=== PATIENT | male | born 1980 | race Caucasian/White ===

== ENCOUNTER 2018-01-04 09:59 | Emergency (ER) | payer SELFPAY ==
--- OUTSIDE RECORDS SUMMARY | 2018-01-04 10:02 | XMS REPORT ---
:1980 [facility] [address] [place] [id number] Care Team Providers Name Role Phone UNKNOWN, REFFERING Primary Care Provider Unavailable POLY CARRASCO Unavailable Unavailable Problems This patient has no known problems. Allergies, Adverse Reactions, Alerts This patient has no known allergies or adverse reactions. Medications This patient has no known medications. Results Test Description Test Time Test Comments Text Results Atomic Results Result Comments Valproic Acid (Depakote),S 2017-01-08 05:51:00 Test Item Value Reference Range Comments Valproic Acid (test code=VALP) 90.6 ug/mL 50.0-100.0 Culture, [id number] 08:03:00Specimen: SputumCollected: 01/04/2017 15: 50 Status: Final Last Updated: 01/07/2017 08:03 Gram Stain (Final) (Final ) 01/05/17 Rare Epithelial Cells 01/06/17 Grams morphology consistentwith normal alberto with: No WBC'sSeen Culture Result (Final) (Final) 01/06/17 Normal alberto at 24hours 01/07/17 Normal alberto at 48 hoursPartial Thromboplastin [id number] 16:55:00 Test Item Value Reference Range Comments aPTT (test code=PTT) 32.60 seconds 24.39-37.25 Prothrombin [id number] 16:46:00 Test Item Value Reference Range Comments PT (test code=PT) 10.70 seconds 9.78-13.35 INR (test code=INR) 0.94 Ratio 0.6-1.2 Comprehensive Metabolic [id number] 16:45:00 Test Item Value Reference Range Comments Sodium (test code=NA) 138 mmol/L 135-145 Potassium (test code=K) 4.2 mmol/L 3.5-5.1 Chloride (test code=CL) 98 mmol/L 98-105 Carbon Dioxide (test 27 mmol/L 22-29 code=CO2) Glucose (test code=GLU) 131 mg/dL 70-115 Blood Urea Nitrogen 19 mg/dL 6-20 (test code=BUN) Creatinine (test 0.7 mg/dL 0.7-1.2 code=CREAT) Calcium (test code=CA) 10.5 mg/dL 8.3-10.5 Prot Total (test 7.0 g/dL 6.4-8.3 code=TP) Albumin (test code=ALB) 4.6 g/dL 3.5-5.2 A/G Ratio (test 1.9 Ratio code=AGRATIO) Globulin (test 2.4 2.9-3.1 code=GLOB) Bili Total (test 0.2 mg/dL 0.1-0.9 code=TBIL) Alk Phos (test 86 U/L 40-129 code=APHOS) AST (test code=AST) 16 U/L 1-40 ALT (test code=ALT) 14 U/L 1-41 BUN/Creatinine Ratio 27.1 (test code=BCRATIO) Anion Gap (test 13 mmol/L 7-16 code=AGAP) Estimated GFR (test >60 mL/min/1.73m2 eGFR (estimated Glomerular code=GFR) Filtration Rate) is an estimated value,calculated from the patient's serum creatinine using the MDRD equation.It is NOT the patient's actual GFR. The eGFR provides a more clinicallyuseful measure of kidney disease than serum creatinine alone.This calculation takes sex and race into account, if the informationis provided. If the race is not provided, and the patient isAfrican-Vietnamese, multiply by 1.212. If sex is not provided, and thepatient is female, multiply by 0.742. Results for patients <18 years ofage have not been validated by the MDRD study and should be interpretedwith caution.eGFR Result Interpretation:eGFR > or=60 is in the Normal RangeeGFR < 60 may mean kidney diseaseeGFR < 15 may mean kidney failureRanges recommended by the National Kidney Foundation,http://nkdep.nih .gov CBC with [id number] 16:21:00 Test Item Value Reference Range Comments WBC (test code=WBC) 10.6 K/cumm 4.4-10.5 RBC (test code=RBC) 4.79 M/cumm 4.10-5.70 Hemoglobin (test code=HGB) 13.3 gm/dL 13.4-17.4 Hematocrit (test code=HCT) 40.6 % 38.7-52.0 MCV (test code=MCV) 84.7 fL 80-100 MCH (test code=MCH) 27.7 pg 27.0-32.5 MCHC (test code=MCHC) 32.8 g/dL 32.0-37.5 RDW (test code=RDW) 15.7 % 11.5-14.5 Platelet Count (test code=PLTCT) 327 K/cumm 140-440 MPV (test code=MPV) 7.1 fL Diff Method (test code=DIFFM) Auto Neutrophil (test code=NEUT) 55.8 % 36-70 Lymphocyte (test code=LYMPH) 31.5 % 12-44 Monocyte (test code=MONO) 10.6 % 0-11 Eosinophil (test code=EOS) 1.9 % 0-7 Basophil (test code=BASO) 0.3 % 0-2 Neutro Abs (test code=ANEUT) 5.9 K/cumm 1.6-7.4 Lymph Abs (test code=ALYMPH) 3.3 K/cumm 0.5-4.6 [place] Abs (test code=AMONO) 1.1 K/cumm 0.0-1.2 Eos Abs (test code=AEOS) 0.20 K/cumm 0.00-0.74 Baso Abs (test code=ABASO) 0.0 K/cumm 0.00-0.21 Valproic Acid (Depakote),[id number] 07:27:00 Test Item Value Reference Range Comments Valproic Acid (test code=VALP) 37.8 ug/mL 50.0-100.0 [id number] 14:36:00 Test Item Value Reference Range Comments Amphetamine (test code=AMPH) Negative Negative For diagnostic purposes only, positive results should always be assessedin conjunctionwith the patient's medical history,clinical examination and otherfindings.To fulfill legal requirements, a more specific alternate chemical methodmust be used inorder to obtain a Confirmed analytical result. GC/MS is the preferred confirmatory method. Barbiturates (test code=MADELINE) Negative Negative Benzodiazepine (test Negative Negative code=MARILEE) Cocaine (test code=COCA) Negative Negative Methadone (test code=MTHD) Negative Negative Opiates (test code=OPIA) Negative Negative PCP (test code=PCP) Negative Negative Propoxyphene (test Negative Negative code=PROPOX) THC (test code=THC) Negative Negative Urinalysis [id number] 13:45:00 Test Item Value Reference Range Comments Color (test code=COLOR) Yellow Yellow,Straw,Pl yellow Clarity (test code=CLAR) Clear Clear Specific [place] (test 1.029 1.001-1.035 code=SPGR) pH (test code=PH) 5.0 5.0-9.0 Ketone (test code=KET) Negative mg/dL Negative Glucose (test code=GLUCUR) 100 mg/dL Negative Protein (test code=PROT) Negative mg/dL Negative Bilirubin (test code=BILI) Negative mg/dL Negative Occult Blood (test Trace Negative code=UDOB) Urobilinogen (test 1.0 mg/dL 0.2-1.0 code=UROB) Nitrite (test code=NIT) Negative Negative Leuk Esterase (test Negative Negative code=LEUK) Micros Exam (test Indicated code=MEXAM) Epithelial Cells (test 0-2 /LPF 0-30 code=EPI) WBC, Urine (test code=UWBC) None seen /HPF 0-5 RBC, Urine (test code=URBC) 0-3 /HPF 0-5 Bacteria (test code=BACT) Few /HPF Crystals (test code=DAVID) Few Calcium Oxalate /HPF Comprehensive Metabolic [id number] 13:40:00 Test Item Value Reference Range Comments Sodium (test code=NA) 137 mmol/L 135-145 Potassium (test code=K) 3.7 mmol/L 3.5-5.1 Chloride (test code=CL) 99 mmol/L 98-105 Carbon Dioxide (test 28 mmol/L 22-29 code=CO2) Glucose (test code=GLU) 142 mg/dL 70-115 Blood Urea Nitrogen 18 mg/dL 6-20 (test code=BUN) Creatinine (test 0.8 mg/dL 0.7-1.2 code=CREAT) Calcium (test code=CA) 9.6 mg/dL 8.3-10.5 Prot Total (test 7.1 g/dL 6.4-8.3 code=TP) Albumin (test code=ALB) 4.7 g/dL 3.5-5.2 A/G Ratio (test 2.0 Ratio code=AGRATIO) Globulin (test 2.4 2.9-3.1 code=GLOB) Bili Total (test 0.5 mg/dL 0.1-0.9 code=TBIL) Alk Phos (test 118 U/L 40-129 code=APHOS) AST (test code=AST) 15 U/L 1-40 ALT (test code=ALT) 17 U/L 1-41 BUN/Creatinine Ratio 22.5 (test code=BCRATIO) Anion Gap (test 10 mmol/L 7-16 code=AGAP) Estimated GFR (test >60 mL/min/1.73m2 eGFR (estimated Glomerular code=GFR) Filtration Rate) is an estimated value,calculated from the patient's serum creatinine using the MDRD equation.It is NOT the patient's actual GFR. The eGFR provides a more clinicallyuseful measure of kidney disease than serum creatinine alone.This calculation takes sex and race into account, if the informationis provided. If the race is not provided, and the patient isAfrican-Vietnamese, multiply by 1.212. If sex is not provided, and thepatient is female, multiply by 0.742. Results for patients <18 years ofage have not been validated by the MDRD study and should be interpretedwith caution.eGFR Result Interpretation:eGFR > or=60 is in the Normal RangeeGFR < 60 may mean kidney diseaseeGFR < 15 may mean kidney failureRanges recommended by the National Kidney Foundation,http://nkdep.nih .gov Alcohol/Ethanol, [id number] 13:40:00 Test Item Value Reference Range Comments Alcohol, Ethyl (test <0.01 g/dL 0.00-0.01 Intoxicated 0.080 g/dL or code=ETOH) more CBC with [id number] 13:24:00 Test Item Value Reference Range Comments WBC (test code=WBC) 8.9 K/cumm 4.4-10.5 RBC (test code=RBC) 5.03 M/cumm 4.10-5.70 Hemoglobin (test code=HGB) 13.6 gm/dL 13.4-17.4 Hematocrit (test code=HCT) 43.1 % 38.7-52.0 MCV (test code=MCV) 85.7 fL 80-100 MCH (test code=MCH) 27.0 pg 27.0-32.5 MCHC (test code=MCHC) 31.5 g/dL 32.0-37.5 RDW (test code=RDW) 14.0 % 11.5-14.5 Platelet Count (test code=PLTCT) 315 K/cumm 140-440 MPV (test code=MPV) 7.4 fL Diff Method (test code=DIFFM) Auto Neutrophil (test code=NEUT) 62.0 % 36-70 Lymphocyte (test code=LYMPH) 28.0 % 12-44 Monocyte (test code=MONO) 7.8 % 0-11 Eosinophil (test code=EOS) 1.7 % 0-7 Basophil (test code=BASO) 0.6 % 0-2 Neutro Abs (test code=ANEUT) 5.5 K/cumm 1.6-7.4 Lymph Abs (test code=ALYMPH) 2.5 K/cumm 0.5-4.6 [place] Abs (test code=AMONO) 0.7 K/cumm 0.0-1.2 Eos Abs (test code=AEOS) 0.15 K/cumm 0.00-0.74 Baso Abs (test code=ABASO) 0.1 K/cumm 0.00-0.21
--- NOTE | 2018-01-04 10:57 | EDPHYS ---
Physician Documentation [facility] Name: Tucker Gannon Age: 37 yrs Sex: Male : 1980 Arrival Date: 01/04/2018 Time: 10:05 Bed 13 Private MD: ED Physician Douglas Stewart HPI: 01/04 10:17 This 37 yrs old Male presents to ER via Ambulatory with complaints of Other. cp 10:17 requesting xrays of back and wrists so he can return to work. Onset: The cp symptoms/episode began/occurred at an unknown time. Historical: - Allergies: 10:10 No Known Allergies; la1 - PMHx: 10:10 None; la1 - Immunization history:: Adult Immunizations up to date. - Social history:: Smoking status: unknown. ROS: 10:18 Eyes: Negative for injury, pain, redness, and discharge. cp 10:18 Constitutional: Negative for body aches, chills, fever, poor PO intake. 10:18 Cardiovascular: Negative for chest pain, edema, palpitations. 10:18 Respiratory: Negative for cough, shortness of breath, wheezing. 10:18 Abdomen/GI: Negative for abdominal pain, nausea, vomiting, and diarrhea, black/tarry stool, rectal bleeding. 10:18 Back: Negative for decreased range of motion, pain at rest, pain with movement, radiated pain. 10:18 MS/extremity: Negative for injury or acute deformity, decreased range of motion, paresthesias. 10:18 Skin: Negative for cellulitis, rash. 10:18 Neuro: Negative for altered mental status, headache, weakness. 10:18 All other systems are negative. Exam: 10:21 Head/Face: Normocephalic, atraumatic. cp 10:21 Constitutional: The patient appears in no acute distress, alert, awake, non-diaphoretic, non-toxic, well developed, well nourished. 10:21 Eyes: Periorbital structures: appear normal, Conjunctiva: normal, no exudate, no injection, Sclera: no appreciated abnormality, Lids and lashes: appear normal, bilaterally. 10:21 ENT: External ear(s): are unremarkable, Nose: is normal, Mouth: Lips: moist, Oral mucosa: pink and intact, moist, Posterior pharynx: is normal, airway is patent. 10:21 Neck: C-spine: vertebral tenderness, is not appreciated, crepitus, is not appreciated, ROM/movement: is normal, is supple, without pain, no range of motions limitations, no meningismus, no nuchal rigidity. 10:21 Chest/axilla: Inspection: normal, Palpation: is normal, no crepitus, no tenderness. 10:21 Cardiovascular: Rate: tachycardic, Rhythm: regular, Pulses: Pulses are 2+ in right radial artery and left radial artery. Edema: is not appreciated, JVD: is not appreciated. 10:21 Respiratory: the patient does not display signs of respiratory distress, Respirations: normal, no use of accessory muscles, no retractions, no splinting, no tachypnea, labored breathing, is not present, Breath sounds: are clear throughout, no decreased breath sounds, no stridor, no wheezing. 10:21 Abdomen/GI: Inspection: abdomen appears normal, Palpation: abdomen is soft and non-tender, in all quadrants, rebound tenderness, is not appreciated, voluntary guarding, is not appreciated, involuntary guarding, is not appreciated. 10:21 Back: pain, is absent, ROM is normal, Straight leg raises: of both lower extremities does not illicit pain. 10:21 Skin: cellulitis, is not appreciated, no rash present. 10:21 Neuro: Orientation: to person, place \T\ time. Cerebellar function: is grossly normal, Motor: moves all fours, strength is normal, Sensation: is normal, Gait: is steady, at a normal pace, without difficulty. Vital Signs: 10:10 BP 147 / 95; Pulse 111; Resp 19; Temp 97.3(TE); Pulse Ox 100% on R/A; la1 MDM: 10:12 Patient medically screened. cp 10:25 Data reviewed: vital signs, nurses notes. cp Administered Medications: No medications were administered Disposition: 10:28 Encounter for screening, unspecified. cp Disposition: 01/04/18 10:57 Discharged to Home as Medical Screen. Impression: Encounter for screening, unspecified. - Condition is Stable. - Medication Reconciliation Form, Thank You Letter, Antibiotic Education, Prescription Opioid Use form. - Follow up: Private Physician; When: 1 - 2 days; Reason: Recheck today's complaints. - Problem is new. - Symptoms are unchanged. Addendum: 01/06/2018 09:37 Co-signature as Attending Physician, Douglas Stewart MD. w a Signatures: Sandra Ramos RN AZEB iw Zay Machado RN RN la1 Deric Quiroz PA PA cp Terry, MD MD rodrigo Cole Corrections: (The following items were deleted from the chart) 01/04 10:58 10:57 01/04/2018 10:57 Discharged to Home as Medical Screen. Impression: Encounter for cp examination and observation for unspecified reason. Condition is Stable. Forms are Medication Reconciliation Form, Thank You Letter, Antibiotic Education, Prescription Opioid Use. Follow up: Private Physician; When: 1 - 2 days; Reason: Recheck today's complaints. Problem is new. Symptoms are unchanged. cp 11:04 10:58 01/04/2018 10:57 Discharged to Home as Medical Screen. Impression: Encounter for iw screening, unspecified. Condition is Stable. Forms are Medication Reconciliation Form, Thank You Letter, Antibiotic Education, Prescription Opioid Use. Follow up: Private Physician; When: 1 - 2 days; Reason: Recheck today's complaints. Problem is new. Symptoms are unchanged. cp
--- NOTE | 2018-01-04 10:57 | ER ---
Nurse's Notes [facility] Name: Tucker Gannon Age: 37 yrs Sex: Male : 1980 Arrival Date: 01/04/2018 Time: 10:05 Bed 13 Private MD: Diagnosis: Encounter for screening, unspecified Presentation: 01/04 10:09 Presenting complaint: Patient states: I need xrays of my back and right wrist so I can la1 go to work. Transition of care: patient was not received from another setting of care. Onset of symptoms was January 04, 2018. Initial Sepsis Screen: Does the patient meet any 2 criteria? No. Patient's initial sepsis screen is negative. Does the patient have a suspected source of infection? No. Patient's initial sepsis screen is negative. Care prior to arrival: None. 10:09 Method Of Arrival: Ambulatory la1 10:09 Acuity: KHADIJAH 4 la1 Historical: - Allergies: 10:10 No Known Allergies; la1 - PMHx: 10:10 None; la1 - Immunization history:: Adult Immunizations up to date. - Social history:: Smoking status: unknown. Screenin:11 Abuse screen: Denies threats or abuse. Nutritional screening: No deficits noted. em Tuberculosis screening: No symptoms or risk factors identified. Fall Risk None identified. Assessment: 10:15 General: Appears in no apparent distress. comfortable, Behavior is anxious, Reports. em Pain: Complains of pain in back. Neuro: Level of Consciousness is awake, alert, obeys commands, Oriented to person, place, time, situation. Cardiovascular: Capillary refill < 3 seconds Patient's skin is warm and dry. Respiratory: Airway is patent Respiratory effort is even, unlabored, Respiratory pattern is regular, symmetrical. GI: Abdomen is flat. : No signs and/or symptoms were reported regarding the genitourinary system. EENT: No signs and/or symptoms were reported regarding the EENT system. Derm: Skin is intact, Skin is pink, warm \\T\\ dry. Musculoskeletal: Range of motion: intact in all extremities. 10:20 Reassessment: I agree with above assessment by Zaid Avitia LVN. iw 10:25 Reassessment: pt upset about medical screen, states, "I'm gonna file a 8 million dollar em lawsuit" pt ripped wrist band and walked out of the ER dept. Vital Signs: 10:10 BP 147 / 95; Pulse 111; Resp 19; Temp 97.3(TE); Pulse Ox 100% on R/A; la1 ED Course: 10:05 Patient arrived in ED. sb2 10:10 Triage completed. la1 10:10 Arm band placed on left wrist. la1 10:11 Zaid Avitia LVN is Primary Nurse. em 10:12 Deric Quiroz PA is PHCP. cp 10:12 Douglas Stewart MD is Attending Physician. cp 10:12 Patient has correct armband on for positive identification. Bed in low position. Call em light in reach. Adult w/ patient. 10:28 No provider procedures requiring assistance completed. Patient did not have IV access em during this emergency room visit. Administered Medications: No medications were administered Outcome: 10:57 Discharge ordered by MD. cp 11:03 Medical screen evaluation completed per provider. Patient declined treatment. em 11:03 Condition: good 11:03 Following a medical screening exam, the patient was provided information regarding alternative care sites and resources available per registration personnel. 11:04 Patient left the ED. iw Signatures: Zaid Avitia LVN LVN em Sandra Ramos RN RN iw Zay Machado RN RN la1 Deric Quiroz PA PA cp Crystal Camara sb2
== END 2018-01-04 11:04 | disposition home or self-care (01) ==
LOC: ER 09:59
DX: Z13.9 Encounter for screening, unspecified (principal)
CPT/HCPCS: 99281

== ENCOUNTER 2021-04-24 14:05 | Emergency (ER) | payer SELFPAY ==
--- OUTSIDE RECORDS SUMMARY | 2021-04-24 14:08 | XMS REPORT | Continuity of Care Document ---
:1980 Author Organization [facility] t Address [address] [place] [address] Dr. Vitale [address] [place] [id number] Care Team Providers Name Role Phone UNKNOWN Primary Care Physician Unavailable Hao CARRASCO Attending Clinician Unavailable Hao CARRASCO Admitting Clinician Unavailable Problems This patient has no known problems. Allergies, Adverse Reactions, Alerts This patient has no known allergies or adverse reactions. Medications This patient has no known medications. Procedures This patient has no known procedures. Results Test Description Test Time Test Comments Results Result Comments Source Valproic Acid (Depakote),S 2017-01-08 05:51:00 Test Item Value Reference Range Interpretation Comme nts Valproic Acid (test code = VALP) 90.6 ug/mL 50.0-100.0 N Culture, [id number] 08:03:00Specimen: SputumCollected: 01/04/2017 15:50 Status: Final Last Updated: 01/07/2017 08:03 Gram Stain (Final) (Final) 01/05/17 Rare Epithelial Cells 01/06/17 Grams morphology consistent with normal alberto with: No WBC'sSeen Culture Result (Final) (Final) 01/06/17 Normal alberto at 24hours 01/07/17 Normal alberto at 48 hoursPartial Thromboplastin [id number] 16:55:00 Test Item Value Reference Range Interpretation Comments aPTT (test code = PTT) 32.60 seconds 24.39-37.25 N Prothrombin [id number] 16:46:00 Test Item Value Reference Range Interpretation Comments PT (test code = PT) 10.70 seconds 9.78-13.35 N INR (test code = INR) 0.94 Ratio 0.6-1.2 N Comprehensive Metabolic [id number] 16:45:00 Test Item Value Reference Range Interpretation Comments Sodium (test code = 138 mmol/L 135-145 N NA) Potassium (test 4.2 mmol/L 3.5-5.1 N code = K) Chloride (test code 98 mmol/L 98-105 N = CL) Carbon Dioxide 27 mmol/L 22-29 N (test code = CO2) Glucose (test code 131 mg/dL 70-115 H = GLU) Blood Urea Nitrogen 19 mg/dL 6-20 N (test code = BUN) Creatinine (test 0.7 mg/dL 0.7-1.2 N code = CREAT) Calcium (test code 10.5 mg/dL 8.3-10.5 N = CA) Prot Total (test 7.0 g/dL 6.4-8.3 N code = TP) Albumin (test code 4.6 g/dL 3.5-5.2 N = ALB) A/G Ratio (test 1.9 Ratio code = AGRATIO) Globulin (test code 2.4 2.9-3.1 L = GLOB) Bili Total (test 0.2 mg/dL 0.1-0.9 N code = TBIL) Alk Phos (test code 86 U/L 40-129 N = APHOS) AST (test code = 16 U/L 1-40 N AST) ALT (test code = 14 U/L 1-41 N ALT) BUN/Creatinine 27.1 Ratio (test code = BCRATIO) Anion Gap (test 13 mmol/L 7-16 N code = AGAP) Estimated GFR (test >60 eGFR (es timated code = GFR) mL/min/1.73m2 Glomerular Seb tration Rate) is an est imated value,calculate d from the patient's s smitha creatinine usin g the MDRD equation.I t is NOT the patient 's actual GFR. The eGFR provides a more clinicallyusefu l measure of kidn ey disease than se rum creatinine alone.This calculation vargas es sex and race into account, if the informationis provided. If th e race is not provided , and the patient isAfrican-Ameri can, multiply by 1.2 12. If sex is not prov ided, and thepatient is female, multipl y by 0.742. Results for patients <18 ye ars ofage have not been validated by th e MDRD study and shoul d be interpretedwith caution.eGFR Re sult Interpretation: eGFR > or = 60 is in t he Normal RangeeGF R < 60 may mean kidney diseaseeGFR < 1 5 may mean kidney failureRange s recommended by the National Kidney Foundation,http ://nkd ep.nih.gov CBC with [id number] 16:21:00 Test Item Value Reference Range Interpretation Comments WBC (test code = WBC) 10.6 K/cumm 4.4-10.5 H RBC (test code = RBC) 4.79 M/cumm 4.10-5.70 N Hemoglobin (test code = HGB) 13.3 gm/dL 13.4-17.4 L Hematocrit (test code = HCT) 40.6 % 38.7-52.0 N MCV (test code = MCV) 84.7 fL 80-100 N MCH (test code = MCH) 27.7 pg 27.0-32.5 N MCHC (test code = MCHC) 32.8 g/dL 32.0-37.5 N RDW (test code = RDW) 15.7 % 11.5-14.5 H Platelet Count (test code = 327 K/cumm 140-440 N PLTCT) MPV (test code = MPV) 7.1 fL Diff Method (test code = DIFFM) Auto Neutrophil (test code = NEUT) 55.8 % 36-70 N Lymphocyte (test code = LYMPH) 31.5 % 12-44 N Monocyte (test code = MONO) 10.6 % 0-11 N Eosinophil (test code = EOS) 1.9 % 0-7 N Basophil (test code = BASO) 0.3 % 0-2 N Neutro Abs (test code = ANEUT) 5.9 K/cumm 1.6-7.4 N Lymph Abs (test code = ALYMPH) 3.3 K/cumm 0.5-4.6 N [place] Abs (test code = AMONO) 1.1 K/cumm 0.0-1.2 N Eos Abs (test code = AEOS) 0.20 K/cumm 0.00-0.74 N Baso Abs (test code = ABASO) 0.0 K/cumm 0.00-0.21 N Valproic Acid (Depakote),[id number] 07:27:00 Test Item Value Reference Range Interpretation Comments Valproic Acid (test code = VALP) 37.8 ug/mL 50.0-100.0 L [id number] 14:36:00 Test Item Value Reference Range Interpretation Comments Amphetamine (test code Negative Negative N For d iagnostic purposes = AMPH) only, positive results should always b e assessedin conjunctionwith the patient's medic al history,clinica l examination and otherfindings.T o fulfill legal requirements, a more specific altern ate chemical method must be used inorder to obtain a Confirmed edis lytical result. GC/MS i s the preferred confi rmatory method. Barbiturates (test Negative Negative N code = MADELINE) Benzodiazepine (test Negative Negative N code = MARILEE) Cocaine (test code = Negative Negative N COCA) Methadone (test code = Negative Negative N MTHD) Opiates (test code = Negative Negative N OPIA) PCP (test code = PCP) Negative Negative N Propoxyphene (test Negative Negative N code = PROPOX) THC (test code = THC) Negative Negative N Urinalysis [id number] 13:45:00 Test Item Value Reference Range Interpretation Comments Color (test code = Yellow Yellow,Straw,Pl N COLOR) yellow Clarity (test code = Clear Clear N CLAR) Specific [place] (test 1.029 1.001-1.035 N code = SPGR) pH (test code = PH) 5.0 5.0-9.0 N Ketone (test code = Negative mg/dL Negative N KET) Glucose (test code = 100 mg/dL Negative A GLUCUR) Protein (test code = Negative mg/dL Negative N PROT) Bilirubin (test code = Negative mg/dL Negative N BILI) Occult Blood (test code Trace Negative A = UDOB) Urobilinogen (test code 1.0 mg/dL 0.2-1.0 N = UROB) Nitrite (test code = Negative Negative N NIT) Leuk Esterase (test Negative Negative N code = LEUK) Micros Exam (test code Indicated = MEXAM) Epithelial Cells (test 0-2 /LPF 0-30 A code = EPI) WBC, Urine (test code = None seen /HPF 0-5 A UWBC) RBC, Urine (test code = 0-3 /HPF 0-5 A URBC) Bacteria (test code = Few /HPF BACT) Crystals (test code = Few Calcium Oxalate DAVID) /HPF Comprehensive Metabolic [id number] 13:40:00 Test Item Value Reference Range Interpretation Comments Sodium (test code = 137 mmol/L 135-145 N NA) Potassium (test 3.7 mmol/L 3.5-5.1 N code = K) Chloride (test code 99 mmol/L 98-105 N = CL) Carbon Dioxide 28 mmol/L 22-29 N (test code = CO2) Glucose (test code 142 mg/dL 70-115 H = GLU) Blood Urea Nitrogen 18 mg/dL 6-20 N (test code = BUN) Creatinine (test 0.8 mg/dL 0.7-1.2 N code = CREAT) Calcium (test code 9.6 mg/dL 8.3-10.5 N = CA) Prot Total (test 7.1 g/dL 6.4-8.3 N code = TP) Albumin (test code 4.7 g/dL 3.5-5.2 N = ALB) A/G Ratio (test 2.0 Ratio code = AGRATIO) Globulin (test code 2.4 2.9-3.1 L = GLOB) Bili Total (test 0.5 mg/dL 0.1-0.9 N code = TBIL) Alk Phos (test code 118 U/L 40-129 N = APHOS) AST (test code = 15 U/L 1-40 N AST) ALT (test code = 17 U/L 1-41 N ALT) BUN/Creatinine 22.5 Ratio (test code = BCRATIO) Anion Gap (test 10 mmol/L 7-16 N code = AGAP) Estimated GFR (test >60 eGFR (es timated code = GFR) mL/min/1.73m2 Glomerular Seb tration Rate) is an est imated value,calculate d from the patient's s smitha creatinine usin g the MDRD equation.I t is NOT the patient 's actual GFR. The eGFR provides a more clinicallyusefu l measure of kidn ey disease than se rum creatinine alone.This calculation vargas es sex and race into account, if the informationis provided. If th e race is not provided , and the patient isAfrican-Ameri can, multiply by 1.2 12. If sex is not prov ided, and thepatient is female, multipl y by 0.742. Results for patients <18 ye ars ofage have not been validated by th e MDRD study and [place] d be interpretedwith caution.eGFR Re sult Interpretation: eGFR > or = 60 is in t he Normal RangeeGF R < 60 may mean kidney diseaseeGFR < 1 5 may mean kidney failureRange s recommended by the National Kidney Foundation,http ://nkd ep.nih.gov Alcohol/Ethanol, [id number] 13:40:00 Test Item Value Reference Range Interpretation Comments Alcohol, Ethyl <0.01 g/dL 0.00-0.01 N Intoxicated 0.080 (test code = ETOH) g/dL or m ore CBC with [id number] 13:24:00 Test Item Value Reference Range Interpretation Comments WBC (test code = WBC) 8.9 K/cumm 4.4-10.5 N RBC (test code = RBC) 5.03 M/cumm 4.10-5.70 N Hemoglobin (test code = HGB) 13.6 gm/dL 13.4-17.4 N Hematocrit (test code = HCT) 43.1 % 38.7-52.0 N MCV (test code = MCV) 85.7 fL 80-100 N MCH (test code = MCH) 27.0 pg 27.0-32.5 N MCHC (test code = MCHC) 31.5 g/dL 32.0-37.5 L RDW (test code = RDW) 14.0 % 11.5-14.5 N Platelet Count (test code = 315 K/cumm 140-440 N PLTCT) MPV (test code = MPV) 7.4 fL Diff Method (test code = DIFFM) Auto Neutrophil (test code = NEUT) 62.0 % 36-70 N Lymphocyte (test code = LYMPH) 28.0 % 12-44 N Monocyte (test code = MONO) 7.8 % 0-11 N Eosinophil (test code = EOS) 1.7 % 0-7 N Basophil (test code = BASO) 0.6 % 0-2 N Neutro Abs (test code = ANEUT) 5.5 K/cumm 1.6-7.4 N Lymph Abs (test code = ALYMPH) 2.5 K/cumm 0.5-4.6 N [place] Abs (test code = AMONO) 0.7 K/cumm 0.0-1.2 N Eos Abs (test code = AEOS) 0.15 K/cumm 0.00-0.74 N Baso Abs (test code = ABASO) 0.1 K/cumm 0.00-0.21 N
[2021-04-24 15:18] LABS: Urine Blood Negative (Negative); Urine Glucose Negative (Negative); Urine Protein Negative (Negative); Urine Specific Gravity 1.015 (1.005-1.030)
[2021-04-24 15:37] LABS: Protime INR 0.94
[2021-04-24 15:41] LABS: Absolute Lymphocytes (CBC) 2.9 K/uL (0.7-4.9); Basophils % 0.3 % (0-1.3); Hematocrit 42.2 % (39.6-49.0); Lymphocytes % 21.9 % (15.3-44.8); MPV 7.7 fL (7.6-11.3); RBC Red Blood Cell Count 4.95 M/uL (4.33-5.43)
[2021-04-24 15:50] LABS: ALT/SGPT 23 U/L (12-78); AST/SGOT 8 U/L (15-37); Albumin 3.8 g/dL (3.4-5.0); Alkaline Phosphatase 114 U/L (45-117); BUN Blood Urea Nitrogen 10 mg/dL (7-18); Bicarbonate 28 mmol/L (21-32); Bilirubin Direct < 0.1 mg/dL (0-0.2); Bilirubin Total 0.1 mg/dL (0.2-1.0); Glucose Level 104 mg/dL (74-106); Potassium 3.9 mmol/L (3.5-5.1); Protein, Total 7.4 g/dL (6.4-8.2); Sodium Level 140 mmol/L (136-145)
[2021-04-24 16:15] LABS: Barbiturates NEGATIVE (NEGATIVE); Benzodiazepines NEGATIVE (NEGATIVE); Cocaine POSITIVE (NEGATIVE); METHAMPHETAM NEGATIVE (NEGATIVE); Methadone NEGATIVE (NEGATIVE); Opiates NEGATIVE (NEGATIVE); Phencyclidine NEGATIVE (NEGATIVE); THC Cannibis NEGATIVE (NEGATIVE)
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
[2021-04-24 18:45] VITALS: BP 171/101; TEMP 98; O2SAT 99
== END 2021-04-24 18:38 | disposition home or self-care (01) ==
LOC: ER 14:05
DX: F14.24 Cocaine dependence with cocaine-induced mood disorder (principal); F55.8 Abuse of other non-psychoactive substances
CPT/HCPCS: 36415; 80048; 80076; 80307; 80320; 80329; 81003; 85025; 85610; 85730; 93005; 99284

== ENCOUNTER 2023-12-23 19:43 | Emergency (ER) | payer SELFPAY ==
--- OUTSIDE RECORDS SUMMARY | 2023-12-23 19:46 | XMS REPORT | Continuity of Care Document ---
Author Name Unknown Address [address] [facility]. [address] th[address] Address [address] [facility] [place] [address] Care Team Providers Care Call Center Trainer Name Role Phone UNKNOWN, REFFERING Primary Care Physician GONZALO Young Attending Clinician UnavailJAYDE Chaves Attending Clinician Unavailable ADRIAN GUTIÉRREZ Attending Clinician Unavailable SANDEEP JOE Attending Clinician Unavailable POLY CARRASCO Attending Clinician Unavailable GONZALO MCLAUGHLIN Admitting Clinician UnavailANGELINA Mayes Admitting Clinician Unavailable SANDEEP JOE Admitting Clinician Unavailable POLY CARRASCO Admitting Clinician Unavailable Payers Payer Name Policy Type Policy Number Effective Date Expirati on Date Source [employer] [id number] 2023 00:00:00 MEDICARE PART A [id number] 2008 00:00:00 Encounters Start Date/Time End Date/Time Encounter Type Admission Type Attending Clinicians Care Facility Care Department Encounter ID Source 2023-02-06 19:04:05 Outpatient ED [facility] [id number] [facility] 2023-01-29 10:36:22 Outpatient ED [facility] [id number] [facility] 2023-01-28 18:30:47 Outpatient ED [facility] [id number] [facility] 2023-12-01 14:06:00 2023-12-18 14:11:00 Outpatient GONZALO MCLAUGHLIN [facility] [id number] [facility] 2023-11-28 08:17:35 2023-11-28 23:59:00 [facility] [id number] [facility] 2023-05-13 04:56:00 2023-05-27 12:57:00 Outpatient ADRIAN GUTIÉRREZ [facility] [id number] [facility] 2023-01-29 11:44:00 2023-04-16 10:22:00 Outpatient SANDEEP JOE [facility] [id number] [facility] Results Test Description Test Time Test Comments Results Result Co mments Source Culture, [id number] 08:03:00Specimen: SputumCollected: 01/04/2017 15:50 Status: Final Last Updated: 01/07/2017 08:03 Gram Stain(Final) (Final) 01/05/17 Rare Epithelial Cells 01/06/17 Grams morphology consistent with normal alberto with: No WBC'sSeen Culture Result (Final) (Final) 01/06/17 Normal alberto at 24 hours 01/07/17 Normal alberto at 48 hoursPartial Thromboplastin [id number] 16:55:00* Test Item Value Reference Range Interpretation Comme nts aPTT (test code = PTT) 32.60 seconds 24.39-37.25 N Prothrombin [id number] 16:46:00* Test Item Value Reference Range Interpretation Comme nts PT (test code = PT) 10.70 seconds 9.78-13.35 N INR (test code = INR) 0.94 Ratio 0.6-1.2 N Comprehensive Metabolic [id number] 16:45:00* Test Item Value Reference Range Interpretation Comme nts Sodium (test code = NA) 138 mmol/L 135-145 N Potassium (test code = K) 4.2 mmol/L 3.5-5.1 N Chloride (test code = CL) 98 mmol/L 98-105 N Carbon Dioxide (test code = CO2) 27 mmol/L 22-29 N Glucose (test code = GLU) 131 mg/dL 70-115 H Blood Urea Nitrogen (test code = BUN) 19 mg/dL 6-20 N Creatinine (test code = CREAT) 0.7 mg/dL 0.7-1.2 N Calcium (test code = CA) 10.5 mg/dL 8.3-10.5 N Prot Total (test code = TP) 7.0 g/dL 6.4-8.3 N Albumin (test code = ALB) 4.6 g/dL 3.5-5.2 N A/G Ratio (test code = AGRATIO) 1.9 Ratio Globulin (test code = GLOB) 2.4 2.9-3.1 L Bili Total (test code = TBIL) 0.2 mg/dL 0.1-0.9 N Alk Phos (test code = APHOS) 86 U/L 40-129 N AST (test code = AST) 16 U/L 1-40 N ALT (test code = ALT) 14 U/L 1-41 N BUN/Creatinine Ratio (test code = BCRATIO) 27.1 Anion Gap (test code = AGAP) 13 mmol/L 7-16 N Estimated GFR (test code = GFR) >60 mL/min/1.73m2 eGFR (estimated Glomerular Filtration Rate) is an estimated value,calculated from the patient's serum creatinine using the MDRD equation.It is NOT the patient's actual GFR. The eGFR provides a more clinicallyuseful measure of kidney disease than serum creatinine alone.This calculation takes sex and race into account, if the informationis provided. If the race is not provided, and the patient isAfrican-Argentine, multiply by 1.212. If sex is not provided, and thepatient is female, multiply by 0.742. Results for patients <18 years ofage have not been validated by the MDRD study and should be interpretedwith caution.eGFR Result Interpretation:eGFR > or = 60 is in the Normal RangeeGFR < 60 may mean kidney diseaseeGFR < 15 may mean kidney failureRanges recommended by the National Kidney Foundation,http://nkdep .nih.gov CBC with [id number] 16:21:00* Test Item Value Reference Range Interpretation Comme nts WBC (test code = WBC) 10.6 K/cumm [...] 11.5-14.5 H Platelet Count (test code = PLTCT) 327 K/cumm 140-440 N MPV (test code = MPV) 7.1 fL [...] code = ALYMPH) 3.3 K/cumm 0.5-4.6 N [place] Abs (test code = AMONO) 1.1 K/cumm 0.0-1.2 N Eos Abs (test code = AEOS) 0.20 K/cumm 0.00-0.74 N Baso Abs (test code = ABASO) 0.0 K/cumm 0.00-0.21 N Valproic Acid (Depakote),[id number] 07:27:00* Test Item Value Reference Range Interpretation Comme nts Valproic Acid (test code = VALP) 37.8 ug/mL 50.0-100.0 L [id number] 14:36:00* Test Item Value Reference Range Interpretation Comme nts Amphetamine (test code = AMPH) Negative Negative N For diagnostic p urposes only, positive results should always be assessedin conjunctionwith the patient's medical history,clinical examination and otherfindings.To fulfill legal requirements, a more specific alternate chemical methodmust be used inorder to obtain a Confirmed analytical result. GC/MS is the preferred confirmatory method. Barbiturates (test code = MADELINE) Negative Negative N Benzodiazepine (test code = MARILEE) Negative Negative N Cocaine (test code = COCA) Negative Negative N Methadone (test code = MTHD) Negative Negative N Opiates (test code = OPIA) Negative Negative N PCP (test code = PCP) Negative Negative N Propoxyphene (test code = PROPOX) Negative Negative N THC (test code = THC) Negative Negative N Urinalysis [id number] 13:45:00* Test Item Value Reference Range Interpretation Comme nts Color (test code = COLOR) Yellow Yellow,Straw,Pl yellow N Clarity (test code = CLAR) Clear Clear N Specific [place] (test code = SPGR) 1.029 1.001-1.035 N pH (test code = PH) 5.0 5.0-9.0 N Ketone (test code = KET) Negative mg/dL Negative N Glucose (test code = GLUCUR) 100 mg/dL Negative A Protein (test code = PROT) Negative mg/dL Negative N Bilirubin (test code = BILI) Negative mg/dL Negative N Occult Blood (test code = UDOB) Trace Negative A Urobilinogen (test code = UROB) 1.0 mg/dL 0.2-1.0 N Nitrite (test code = NIT) Negative Negative N Leuk Esterase (test code = LEUK) Negative Negative N Micros Exam (test code = MEXAM) Indicated Epithelial Cells (test code = EPI) 0-2 /LPF 0-30 A WBC, Urine (test code = UWBC) None seen /HPF 0-5 A RBC, Urine (test code = URBC) 0-3 /HPF 0-5 A Bacteria (test code = BACT) Few /HPF Crystals (test code = DAVID) Few Calcium Oxalate /HPF Comprehensive Metabolic [id number] 13:40:00* Test Item Value Reference Range Interpretation Comme nts Sodium (test code = NA) 137 mmol/L 135-145 N Potassium (test code = K) 3.7 mmol/L 3.5-5.1 N Chloride (test code = CL) 99 mmol/L 98-105 N Carbon Dioxide (test code = CO2) 28 mmol/L 22-29 N Glucose (test code = GLU) 142 mg/dL 70-115 H Blood Urea Nitrogen (test code = BUN) 18 mg/dL 6-20 N Creatinine (test code = CREAT) 0.8 mg/dL 0.7-1.2 N Calcium (test code = CA) 9.6 mg/dL 8.3-10.5 N Prot Total (test code = TP) 7.1 g/dL 6.4-8.3 N Albumin (test code = ALB) 4.7 g/dL 3.5-5.2 N A/G Ratio (test code = AGRATIO) 2.0 Ratio Globulin (test code = GLOB) 2.4 2.9-3.1 L Bili Total (test code = TBIL) 0.5 mg/dL 0.1-0.9 N Alk Phos (test code = APHOS) 118 U/L 40-129 N AST (test code = AST) 15 U/L 1-40 N ALT (test code = ALT) 17 U/L 1-41 N BUN/Creatinine Ratio (test code = BCRATIO) 22.5 Anion Gap (test code = AGAP) 10 mmol/L 7-16 N Estimated GFR (test code = GFR) >60 mL/min/1.73m2 eGFR (estimated Glomerular Filtration Rate) is an estimated value,calculated from the patient's serum creatinine using the MDRD equation.It is NOT the patient's actual GFR. The eGFR provides a more clinicallyuseful measure of kidney disease than serum creatinine alone.This calculation takes sex and race into account, if the informationis provided. If the race is not provided, and the patient isAfrican-Argentine, multiply by 1.212. If sex is not provided, and thepatient is female, multiply by 0.742. Results for patients <18 years ofage have not been validated by the MDRD study and should be interpretedwith caution.eGFR Result Interpretation:eGFR > or = 60 is in the Normal RangeeGFR < 60 may mean kidney diseaseeGFR < 15 may mean kidney failureRanges recommended by the National Kidney Foundation,http://nkdep .nih.gov Alcohol/Ethanol, [id number] 13:40:00* Test Item Value Reference Range Interpretation Comme nts Alcohol, Ethyl (test code = ETOH) <0.01 g/dL 0.00-0.01 N Intoxicated 0 .080 g/dL or more CBC with [id number] 13:24:00* Test Item Value Reference Range Interpretation Comme nts WBC (test code = WBC) 8.9 K/cumm [...] 11.5-14.5 N Platelet Count (test code = PLTCT) 315 K/cumm 140-440 N MPV (test code = MPV) 7.4 fL [...] code = ALYMPH) 2.5 K/cumm 0.5-4.6 N [place] Abs (test code = AMONO) 0.7 K/cumm 0.0-1.2 N Eos Abs (test code = AEOS) 0.15 K/cumm 0.00-0.74 N Baso Abs (test code = ABASO) 0.1 K/cumm 0.00-0.21 N
--- NOTE | 2023-12-23 21:23 | RAD REPORT ---
EXAM DESCRIPTION: RAD - Lumbar Spine 3 Views - 12/23/2023 9:18 pm CLINICAL HISTORY: back pain Radiculopathy COMPARISON: No comparisons FINDINGS: Vertebral body heights appear maintained. No compression fracture noted. Mild disc space n arrowing at L4-5 and L5-S1 with small posterior osteophytes. No spondylolysis or spondylolisthesis. IMPRESSION: No acute abnormality seen. Mild lower lumbar spondylosis.
--- NOTE | 2023-12-23 21:23 | RAD REPORT ---
EXAM DESCRIPTION: RAD - Knee Right 3 View - 12/23/2023 9:18 pm CLINICAL HISTORY: right knee pain COMPARISON: No comparisons FINDINGS: No acute fracture or dislocation suspected. Moderate medial joint compartment space narrow ing. Small suprapatellar joint effusion.
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
[2023-12-23] MEDS ORDERED: IBUPROFEN 400 MG TAB ONE (21:45)
[2023-12-23] MEDS ORDERED: methocarbamoL 750 MG TAB ONE (21:45)
[2023-12-23] MEDS ORDERED: TRAMADOL HCL 50 MG TAB ONE (21:46)
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
[2023-12-23 23:21] VITALS: TEMP 98.1
[2023-12-23 23:49] VITALS: BP 133/75; O2SAT 100
== END 2023-12-23 22:32 | disposition home or self-care (01) ==
LOC: ER 19:43
DX: S43.401A Unspecified sprain of right shoulder joint, initial encounter (principal); S80.01XA Contusion of right knee, initial encounter; S40.011A Contusion of right shoulder, initial encounter; S30.0XXA Contusion of lower back and pelvis, initial encounter; Z72.0 Tobacco use
CPT/HCPCS: 72100; 99283